=== PATIENT | female | born 1995 | race African-American/Black ===

== ENCOUNTER 2017-01-07 20:30 | Emergency (ER) | payer OTHER ==
[~2017-01-07] VITALS: Ht 162.6 cm; Wt 125.9 kg
[2017-01-07 20:36] VITALS: TEMP 36.9; Ht 162.6 cm; Wt 125.9 kg
[2017-01-07] MEDS ORDERED: VNTHFA/IN INH (21:15)
[2017-01-07] MEDS ORDERED: FEXO1TAB49 PO (21:17)
[2017-01-07] MEDS ORDERED: HYDROCODONE/HOMATROPINE SYRUP 5MG/1.5MG 5ML UDP PO STA (21:41)
[2017-01-07] MEDS ORDERED: SODIUM CHLORIDE 0.9% 1000ML 1,000 ML IV STA (21:41)
--- NOTE | 2017-01-07 21:44 | EMERGENCY ROOM VISIT NOTE ---
History Report prepared by Emani: Nadia Starr Under the Supervision of: Dr. Herber Caputo M.D. First contact with patient: 21:34 Chief Complaint: RESPIRATORY PROBLEMS Stated Complaint: HAVING TROUBLE BREATHING AND CHEST PAIN Nursing Triage Summary: cough for a few days worked all day with it. ameya coughed " reaqlly bad and threw up one time." History of Present Illness The patient is a 21 year old female who presents to the Emergency Room with complaints of worsening coughing with onset RECOVERY COORDINATOR. She rates her discomfort as a 5 /10. The patient has been using an inhaler as she has a history of asthma. Tonight, she started to cough more frequently while at work. When she went home , she continued to cough and then vomited. The patient then started to have some chest pain. Source of History: patient Onset: RECOVERY COORDINATOR Position: chest Symptom Intensity: 5/10 Quality: other (coughing) Timing: worsening Associated Symptoms: + chest pain, + vomiting Review of Systems See HPI for pertinent positives & negatives. A total of 10 systems reviewed and were otherwise negative. Past Medical & Surgical Medical Problems: (1) Asthma Family History No pertinent family history Social History Smoking Status: Never Smoker Drug Use: none Housing Status: lives with roommate Occupation Status: employed Current/Historical Medications Scheduled Prednisone (Prednisone Tab), 0 PO DAILY Scheduled PRN Albuterol Hfa (Ventolin Hfa), 2 PUFFS INH Q6H PRN for SOB/Wheezing Fexofenadine Hcl (Melissa Allergy), 180 MG PO DAILY PRN for ALLERGIC REACTION Allergies Coded Allergies: Cephalexin (Verified Allergy, Unknown, Unk, 01/07/17) Physical Exam Vital Signs Date Time Temp Pulse Resp B/P Pulse Ox O2 Delivery O2 Flow Rate FiO2 01/07/17 23:47 90 18 143/87 100 01/07/17 22:31 92 01/07/17 22:10 85 18 141/93 100 Room Air 01/07/17 22:09 83 16 98 Room Air 01/07/17 21:46 98 Room Air 01/07/17 20:39 98 Room Air 01/07/17 20:36 36.9 98 20 138/84 98 Room Air Physical Exam GENERAL: Patient is a healthy-appearing well-nourished HEAD: Normocephalic atraumatic EYES: Ocular movements intact pupils equal and react to light OROPHARYNX mucous membranes are moist no exudates present no erythema or edema present NECK: Supple no nuchal rigidity CHEST: Good equal expansion LUNGS: Slight wheezes at the bases. CARDIAC: Normal S1 and S2 ABDOMEN: Soft nontender no guarding BACK: No CVA tenderness EXTREMITIES: No pain upon palpation normal muscle strength in all groups no clubbing cyanosis or edema NEURO: Patient is following commands is answering questions appropriately. Alert and oriented x3 Cranial Nerves 2-12 grossly intact Medical Decision & Procedures ER Provider Diagnostic Interpretation: X-ray results as stated below per interpretation by me and the radiologist: SINGLE VIEW CHEST CLINICAL HISTORY: Cough. FINDINGS: An AP, portable, upright chest radiograph is obtained. No prior studies are available for comparison at the time of dictation. The examination is degraded by portable technique and large body habitus. The cardiomediastinal silhouette is unremarkable. The lungs and pleural spaces are clear. No pneumothorax is seen. The bony thorax is grossly intact. IMPRESSION: No active disease in the chest. Electronically signed by: Ralph Shaffer M.D. 01/07/2017 10:08 PM Dictated Date/Time: 01/07/2017 10:08 PM Laboratory Results 01/07/17 21:50 Red Blood Count 4.64, Mean Corpuscular Volume 76.3, Mean Corpuscular Hemoglobin 23.3, Mean Corpuscular Hemoglobin Concent 30.5, Mean Platelet Volume 9.9, Neutrophils (%) (Auto) 58.7, Lymphocytes (%) (Auto) 30.3, Monocytes (%) (Auto) 5.6, Eosinophils (%) (Auto) 4.9, Basophils (%) (Auto) 0.3, Neutrophils # (Auto) 5.69, Lymphocytes # (Auto) 2.93, Monocytes # (Auto) 0.54, Eosinophils # (Auto) 0.47, Basophils # (Auto) 0.03 01/07/17 21:50 Test 01/07/17 21:50 01/07/17 22:00 01/07/17 22:05 White Blood Count 9.68 K/uL (4.8-10.8) Red Blood Count 4.64 M/uL (4.2-5.4) Hemoglobin 10.8 g/dL (12.0-16.0) Hematocrit 35.4 % (37-47) Mean Corpuscular Volume 76.3 fL (80-100) Mean Corpuscular Hemoglobin 23.3 pg (25-34) Mean Corpuscular Hemoglobin Concent 30.5 g/dl (32-36) Platelet Count 440 K/uL (130-400) Mean Platelet Volume 9.9 fL (7.4-10.4) Neutrophils (%) (Auto) 58.7 % Lymphocytes (%) (Auto) 30.3 % Monocytes (%) (Auto) 5.6 % Eosinophils (%) (Auto) 4.9 % Basophils (%) (Auto) 0.3 % Neutrophils # (Auto) 5.69 K/uL (1.4-6.5) Lymphocytes # (Auto) 2.93 K/uL (1.2-3.4) Monocytes # (Auto) 0.54 K/uL (0.11-0.59) Eosinophils # (Auto) 0.47 K/uL (0-0.5) Basophils # (Auto) 0.03 K/uL (0-0.2) RDW Standard Deviation 44.3 fL (36.4-46.3) RDW Coefficient of Variation 15.9 % (11.5-14.5) Immature Granulocyte % (Auto) 0.2 % Immature Granulocyte # (Auto) 0.02 K/uL (0.00-0.02) Toxic Vacuolation 1+ Polychromasia 1+ Anion Gap 11.0 mmol/L (3-11) Est Creatinine Clear Calc Drug Dose 129.1 ml/min Estimated GFR () 105.9 Estimated GFR (Non- 91.4 BUN/Creatinine Ratio 12.8 (10-20) Calcium Level 8.8 mg/dl (8.5-10.1) Total Bilirubin 0.3 mg/dl (0.2-1) Aspartate Amino Transf (AST/SGOT) 27 U/L (15-37) Alanine Aminotransferase (ALT/SGPT) 39 U/L (12-78) Alkaline Phosphatase 70 U/L (45-117) Total Protein 7.9 gm/dl (6.4-8.2) Albumin 3.5 gm/dl (3.4-5.0) Globulin 4.4 gm/dl (2.5-4.0) Albumin/Globulin Ratio 0.8 (0.9-2) Urine Color YELLOW Urine Appearance CLEAR (CLEAR) Urine pH 7.5 (4.5-7.5) Urine Specific Spruce 1.023 (1.000-1.030) Urine Protein NEG (NEG) Urine Glucose (UA) NEG (NEG) Urine Ketones NEG (NEG) Urine Occult Blood TRACE (NEG) Urine Nitrite NEG (NEG) Urine Bilirubin NEG (NEG) Urine Urobilinogen NEG (NEG) Urine Leukocyte Esterase SMALL (NEG) Urine WBC (Auto) 5-10 /hpf (0-5) Urine RBC (Auto) 0-4 /hpf (0-4) Urine Hyaline Casts (Auto) 1-5 /lpf (0-5) Urine Epithelial Cells (Auto) >30 /lpf (0-5) Urine Bacteria (Auto) 1+ (NEG) Influenza Type A (RT-PCR) Neg for Influ A (NEG) Influenza Type A Antigen Neg for Influ A (NEG) Influenza Type B Antigen Neg for Influ B (NEG) Influenza Type B (RT-PCR) Neg for Influ B (NEG) Labs reviewed by ED physician. Medications Administered Medications (Trade) Dose Ordered Sig/Clary Route Start Time Stop Time Status Last Admin Dose Admin Sodium Chloride (Nss 1000ml) 1,000 ml @ 999 mls/hr Q1H1M STAT IV 01/07/17 21:41 01/07/17 22:41 DC 01/07/17 22:04 999 MLS/HR Albuterol/ Ipratropium (Duoneb) 12 ml ONE ONCE INH 01/07/17 21:45 01/07/17 21:46 DC 01/07/17 22:09 12 ML Hydrocodone Bit/ Homatropine Methylb (Hycodan Syrup) 5 ml NOW STAT PO 01/07/17 21:41 01/07/17 21:43 DC 01/07/17 22:04 5 ML Hydrocodone Bit/ Homatropine Methylb (Hycodan Elix Homepack 5/1.5MG/ 5ML) 1 homepack UD ONCE PO 01/07/17 21:45 01/07/17 21:46 DC 01/07/17 22:39 1 HOMEPACK Methylprednisolone Sodium Succinate (Solu-Medrol IV) 125 mg NOW STAT IV 01/07/17 22:41 01/07/17 22:42 DC 01/07/17 22:53 125 MG ECG Indication: SOB/dyspnea Rate (beats per minute): 94 Rhythm: normal sinus Findings: no acute ischemic change, no ectopy ED Course 2137: Past medical records reviewed. The patient was evaluated in room C2. A complete history and physical examination was performed. 2140: Hycodan Syrup 5 ml PO, Sodium Chloride 1000 ml @ 999 mls/hr IV 2144: Hycodan Elix Homepack 5/1.5 mg 1 homepack PO, Duoneb 12 ml INH 1: Solu-Medrol 125 mg IV 2306: Upon reexamination the patient is doing well. I discussed results and treatment plan with the patient. She verbalizes agreement and understanding. The patient is ready for discharge. Medical Decision The patient is a 21 year old female who presents to the ED with complaints of coughing. Differential diagnosis: Etiologies such as infections, reactive airway disease, pneumonia, pneumothorax , COPD, CHF, cardiac ischemia, pulmonary embolism, musculoskeletal, gastrointestinal, as well as others were entertained. This is a 21-year-old female who presents emergency department complaining of shortness of breath. The patient was given an hour-long breathing treatment along with a normal saline bolus. The patient was started on albuterol. She was also given Solu-Medrol. Patient was in agreement with the treatment plan. Impression Primary Impression: Asthma exacerbation Scribe Attestation The scribe's documentation has been prepared under my direction and personally reviewed by me in its entirety. I confirm that the note above accurately reflects all work, treatment, procedures, and medical decision making performed by me. Departure Information Dispostion Home / Self-Care Prescriptions Prednisone (Prednisone Tab) 20 Mg Tab 0 PO DAILY, #7 TAB 2 TABS DAILY FOR 2 DAYS, THEN 1 TAB DAILY FOR 2 DAYS, THEN 1/2 TAB DAILY FOR 2 DAYS. Prov: Herber Caputo MD 01/07/17 Forms HOME CARE DOCUMENTATION FORM, IMPORTANT VISIT INFORMATION, WORK / SCHOOL INSTRUCTIONS Patient Instructions Asthma - [facility], My [facility] Additional Instructions Use inhaler twice every 6 hours You have been examined and treated today on an emergency basis only. This is not a substitute for, or an effort to provide, complete comprehensive medical care. It is impossible to recognize and treat all injuries or illnesses in a single emergency department visit. It is therefore important that you follow up closely with your PCP. Call as soon as possible for an appointment. Thank you for your time and consideration. I look forward to speaking with you again soon. Please don't hesitate to call us if you have any questions.
[2017-01-07] MEDS ORDERED: ALBUT/IPRATROP 3MG/0.5MG NEB 3 ML VIAL INH ONE (21:45)
[2017-01-07] MEDS ORDERED: HYCODAN 60ML BOTTLE HOMEPACK PO ONE (21:45)
[2017-01-07 21:46] VITALS: O2SAT 98
[2017-01-07 22:09] VITALS: PULSE 83; O2SAT 98
--- NOTE | 2017-01-07 22:10 | DIAGNOSTIC IMAGING REPORT ---
SINGLE VIEW CHEST CLINICAL HISTORY: Cough. FINDINGS: An AP, portable, upright chest radiograph is obtained. No prior studies are available for comparison at the time of dictation. The examination is degraded by portable technique and large body habitus. The cardiomediastinal silhouette is unremarkable. The lungs and pleural spaces are clear. No pneumothorax is seen. The bony thorax is grossly intact. IMPRESSION: No active disease in the chest. Electronically signed by: Ralph Shaffer M.D. 01/07/2017 10:08 PM Dictated Date/Time: 01/07/2017 10:08 PM
[2017-01-07 22:33] LABS: BUN/CREATININE RATIO 12.8 (10-20); CALCIUM 8.8 mg/dl (8.5-10.1); CREATININE 0.89 mg/dl (0.60-1.20); POTASSIUM 3.8 mmol/L (3.5-5.1)
[2017-01-07 22:36] LABS: ALB/GLOB RATIO 0.8 (0.9-2)
[2017-01-07 22:38] LABS: URINE APPEARANCE CLEAR (CLEAR); URINE BILIRUBIN NEG (NEG); URINE COLOR YELLOW; URINE EPITHELIAL CELL AUTO >30 /lpf (0-5); URINE NITRITE NEG (NEG); URINE PH 7.5 (4.5-7.5); URINE SPECIFIC GRAVITY 1.023 (1.000-1.030); UROBILINOGEN NEG (NEG)
[2017-01-07 22:39] LABS: MANUAL MICROSCOPIC REQUIRED? NO; REVIEW REQ? NO
[2017-01-07] MEDS ORDERED: METHYLPREDNISOLONE 125 MG VIAL IV STA (22:41)
[2017-01-07] MEDS ORDERED: PRED20TA2 PO (23:05)
[2017-01-07 23:47] VITALS: BP 143/87; PULSE 90; O2SAT 100
[2017-01-08] LABS: BASO % 0.3 %; BASO ABS # 0.03 K/uL (0-0.2); COMPLETE YES; EOS % 4.9 %; HEMATOCRIT 35.4 % (37-47); IG% 0.2 %; LYMPH % 30.3 %; LYMPH ABS # 2.93 K/uL (1.2-3.4); MEAN CELL VOLUME 76.3 fL (80-100); MEAN CORPUSCULAR HEMOGLOBIN 23.3 pg (25-34); MEAN CORPUSCULAR HGB CONC 30.5 g/dl (32-36); MEAN PLATELET VOLUME 9.9 fL (7.4-10.4); MONO % 5.6 %; NEUT % 58.7 %; PLATELET COUNT 440 K/uL (130-400); POLYCHROMASIA 1+; RED BLOOD COUNT 4.64 M/uL (4.2-5.4); VACUOLIZATION 1+; WHITE BLOOD COUNT 9.68 K/uL (4.8-10.8)
[2017-01-08 00:13] LABS: INFLUENZA A PCR Neg for Influ A (NEG); INFLUENZA B PCR Neg for Influ B (NEG)
== END 2017-01-07 23:48 | disposition home or self-care (01) ==
LOC: C.EDB 20:32 → C.EDC 23:48
DX: J45.901 Unspecified asthma with (acute) exacerbation (principal)